=== PATIENT | female | born 1935 | race Caucasian/White ===

== ENCOUNTER → 2016-10-18 | Outpatient (CLI) | payer OTHER ==
[~2016-10-18] MED LIST: 'CLONIDINE0.1 MG PO; ALLOPURINOL300 MG PO; ALPHA LIPOIC A200 MG PO; ASPIRIN81 M1 PO; CARDIZEM CD240 MG PO; CARDURA8 MG PO; CATAPRES0.1 MG PO; CHLORTHALIDONE25 MG PO; COMBIVENT RESPIM4 GM INH; COMBIVENT1 ARO IH; COUMADIN4 M1 PO; COUMADIN4 M2 PO; DILTIAZEM HCL60 MG PO; DOXAZOSIN MESYLA8 MG; DOXAZOSIN PO; DOXYCYCLINE100 MG PO; EYE DROPS; FISH OIL 10001000 MG PO; GARLIC1 TAB PO; IODINE; K-DUR 20MEQ20 MEQ PO; LASIX40 MG PO; LISINOPRIL40 MG PO; MEDROL DOSEPAK4 MG PO; NEURONTIN300 MG PO; OMEPRAZOLE40 MG PO; PRAVACHOL20 MG PO; QUINAPRIL20 MG PO; TEKTURNA300 MG PO; VIBRAMYCIN100 MG PO; VICODIN 5/500 505 MG PO; VITAMIN B1225 MCG PO; VITAMIN B610 MG PO; XANAX0.25 MG PO
[2016-10-18 15:35] LABS: BASO % 0.7 % (0.0-1.0); EOS % 0.5 % (1.0-4.0); HEMATOCRIT 35.2 % (37.0-47.0); HEMOGLOBIN 11.3 g/dl (12.0-16.0); LYMPH # 1.5 10*3/uL (1.3-4.4); MEAN CELL VOLUME 96.2 fl (81.0-99.0); MEAN CORPUSCULAR HGB 30.9 pg (27.0-31.0); MEAN CORPUSCULAR HGB CONC 32.1 g/dl (33.0-37.0); MONO # 0.7 10*3/uL (0.1-1.0); MONO % 11.3 % (3.0-9.0); NEUT # 3.8 10*3/uL (2.3-7.9); NEUT % 62.2 % (47.0-73.0); NUCLEATED RED BLOOD CELL 0.5 % (0.0-0.0); PLATELET COUNT AUTOMATED 187 10*3/uL (130-400); RED BLOOD COUNT 3.66 10*6/uL (4.10-5.10); RED CELL DISTRI WIDTH 17.9 % (0-14.5); WHITE BLOOD COUNT 6.1 10*3/uL (4.8-10.8)
[2016-10-18 16:02] LABS: ALBUMIN 3.9 gm/dl (3.1-4.5); BILIRUBIN, DIRECT 1.2 mg/dL (0.0-0.2); BILIRUBIN, TOTAL 2.1 mg/dl (0.2-1.0); POTASSIUM 4.6 mmol/L (3.5-5.1); TOTAL PROTEIN 7.1 gm/dL (6.4-8.2)
== END | disposition home or self-care (01) ==
LOC: LAB 14:29
PROVIDERS: Family Medicine
DX: L29.9 Pruritus, unspecified (principal)

== ENCOUNTER → 2016-10-24 | Outpatient (CLI) | payer OTHER ==
[~2016-10-24] MED LIST changes: +ATARAX,VISTARIL10 MG PO; +COREG6.25 MG PO; +PREDNISONE10 MG PO; +PROPRANOLOL HCL80 M3 PO
[2016-10-24 12:15] LABS: INTERNATIONAL NORM RATIO 3.6 (2.0-3.5); PROTHROMBIN TIME 41.3 SECONDS (9.0-12.4)
== END | disposition home or self-care (01) ==
LOC: LAB 10:58
PROVIDERS: Internal Medicine Cardiovascular Disease
DX: I48.91 Unspecified atrial fibrillation (principal)

== ENCOUNTER 2016-10-26 09:44 | Emergency (ER) | payer OTHER ==
[~2016-10-26] VITALS: Ht 167.6 cm; Wt 66.2 kg
[~2016-10-26 09:44] MED LIST changes: -ATARAX,VISTARIL10 MG PO; -COREG6.25 MG PO; -PREDNISONE10 MG PO; -PROPRANOLOL HCL80 M3 PO
[2016-10-26 09:51] VITALS: BP 135/87
[2016-10-26] MEDS ORDERED: PROPRANOLOL HCL80 M3 PO (09:58)
[2016-10-26] MEDS ORDERED: ATARAX,VISTARIL10 MG PO (09:59)
[2016-10-26] MEDS ORDERED: COREG6.25 MG PO (09:59)
[2016-10-26] MEDS ORDERED: PREDNISONE10 MG PO (10:05)
== END 2016-10-26 10:50 | disposition home or self-care (01) ==
LOC: ED 09:44
DX: L29.9 Pruritus, unspecified (principal); R03.0 Elevated blood-pressure reading, without diagnosis of hypertension; Z88.0 Allergy status to penicillin; Z88.1 Allergy status to other antibiotic agents; Z88.2 Allergy status to sulfonamides; Z79.82 Long term (current) use of aspirin; Z79.899 Other long term (current) drug therapy

== ENCOUNTER → 2016-11-02 | Outpatient (CLI) | payer OTHER ==
[~2016-11-02] MED LIST changes: +ATARAX,VISTARIL10 MG PO; +COREG6.25 MG PO; +PREDNISONE10 MG PO; +PROPRANOLOL HCL80 M3 PO
[2016-11-02 16:04] LABS: POTASSIUM 4.3 mmol/L (3.5-5.1)
== END | disposition home or self-care (01) ==
LOC: LAB 15:26
PROVIDERS: Family Medicine
DX: R63.4 Abnormal weight loss (principal)

== ENCOUNTER → 2016-11-05 | Outpatient (CLI) | payer OTHER ==
[2016-11-05 11:29] LABS: BASO % 0.2 % (0.0-1.0); EOS # 0.1 10*3/uL (0.0-0.4); EOS % 1.7 % (1.0-4.0); HEMATOCRIT 36.9 % (37.0-47.0); HEMOGLOBIN 11.6 g/dl (12.0-16.0); LYMPH # 1.2 10*3/uL (1.3-4.4); LYMPH % 19.2 % (27.0-41.0); MEAN CELL VOLUME 94.4 fl (81.0-99.0); MEAN CORPUSCULAR HGB 29.7 pg (27.0-31.0); MEAN CORPUSCULAR HGB CONC 31.4 g/dl (33.0-37.0); MEAN PLATELET VOLUME 11.9 fl (9.6-12.3); MONO # 0.5 10*3/uL (0.1-1.0); MONO % 8.5 % (3.0-9.0); NEUT # 4.4 10*3/uL (2.3-7.9); NEUT % 70.1 % (47.0-73.0); NUCLEATED RED BLOOD CELL 0.6 % (0.0-0.0); PLATELET COUNT AUTOMATED 158 10*3/uL (130-400); RED BLOOD COUNT 3.91 10*6/uL (4.10-5.10); RED CELL DISTRI WIDTH 18.6 % (0-14.5); WHITE BLOOD COUNT 6.3 10*3/uL (4.8-10.8)
[2016-11-05 11:55] LABS: INTERNATIONAL NORM RATIO 3.3 (2.0-3.5); PROTHROMBIN TIME 37.7 SECONDS (9.0-12.4)
[2016-11-05 11:57] LABS: ALBUMIN 3.6 gm/dl (3.1-4.5); BILIRUBIN, TOTAL 1.6 mg/dl (0.2-1.0); MAGNESIUM 2.8 mg/dL (1.5-2.1); PHOSPHOROUS 3.5 mg/dL (2.5-4.9); POTASSIUM 5.3 mmol/L (3.5-5.1); TOTAL PROTEIN 6.6 gm/dL (6.4-8.2); URIC ACID 3.1 mg/dL (2.6-6.0)
[2016-11-05 13:03] LABS: VITAMIN D, 25-HYDROXY 37.3 ng/mL (30-100)
[2016-11-05 13:04] LABS: FERRITIN 28.6 ng/mL (10.0-291.0); PTH INTACT 179.8 pg/mL (14.0-72.0)
[2016-11-06 09:14] LABS: MICRO ALBUMIN/CRE RATIO 113.8 (0.0-30.0)
== END | disposition home or self-care (01) ==
LOC: LAB 10:50
PROVIDERS: Internal Medicine Nephrology
DX: I13.0 Hypertensive heart and chronic kidney disease with heart failure and stage 1 through stage 4 chronic kidney disease, or unspecified chronic kidney disease (principal); I50.22 Chronic systolic (congestive) heart failure; N18.3 Chronic kidney disease, stage 3 (moderate); R60.9 Edema, unspecified; I48.2 Chronic atrial fibrillation

== ENCOUNTER 2016-11-12 09:45 | Inpatient (IN) | payer OTHER ==
[2016-11-12] VITALS (8 sets, daily range): BP systolic 109–150; BP diastolic 63–103
[~2016-11-12] VITALS: Ht 170.1 cm; Wt 69.1 kg
--- NOTE | ~2016-11-12 | EKG ---
[place], [place] ELECTROCARDIOGRAM REPORT NAME: MICKIE ECHEVARRIA UNIT #: [id number] ROOM: 410 DOCTOR: MYNOR ARCHER MD BIRTHDATE: [birth year] DOS: 11/12/2016 TIME: 10:05 a.m. Atrial fibrillation with heart rate of 110 and rapid ventricular response. Indeterminant access. Low voltage in extremity leads. Poor precordial R-wave progression. Nonspecific ST and T-wave changes. Abnormal electrocardiogram. MYNOR ARCHER MD CM:EKGRPT:ELECTROCARDIOGRAM REPORT [id number] MYNOR ARCHER MD
[2016-11-12 10:10] LABS: BASO % 0.4 % (0.0-1.0); EOS # 0.1 10*3/uL (0.0-0.4); EOS % 0.7 % (1.0-4.0); HEMATOCRIT 39.8 % (37.0-47.0); HEMOGLOBIN 12.6 g/dl (12.0-16.0); LYMPH # 1.6 10*3/uL (1.3-4.4); LYMPH % 21.4 % (27.0-41.0); MEAN CELL VOLUME 94.8 fl (81.0-99.0); MEAN CORPUSCULAR HGB CONC 31.7 g/dl (33.0-37.0); MEAN PLATELET VOLUME 11.7 fl (9.6-12.3); MONO # 0.6 10*3/uL (0.1-1.0); MONO % 7.8 % (3.0-9.0); NEUT # 5.2 10*3/uL (2.3-7.9); NEUT % 69.3 % (47.0-73.0); NUCLEATED RED BLOOD CELL 0.3 % (0.0-0.0); PLATELET COUNT AUTOMATED 146 10*3/uL (130-400); RED CELL DISTRI WIDTH 20.2 % (0-14.5); WHITE BLOOD COUNT 7.4 10*3/uL (4.8-10.8)
[2016-11-12 10:25] LABS: ALBUMIN 3.7 gm/dl (3.1-4.5); BILIRUBIN, TOTAL 2.6 mg/dl (0.2-1.0); POTASSIUM 5.4 mmol/L (3.5-5.1); TOTAL PROTEIN 6.5 gm/dL (6.4-8.2)
[2016-11-12 10:29] LABS: INTERNATIONAL NORM RATIO 4.2 (2.0-3.5); PROTHROMBIN TIME 48.3 SECONDS (9.0-12.4)
[2016-11-12 10:32] LABS: CKMB 2.8 ng/ml (0.5-3.6); MAGNESIUM 2.7 mg/dL (1.5-2.1); TROPONIN I 0.03 ng/ml (<0.045)
[2016-11-12] MEDS ORDERED: KLOR-CON M2020 ME1 PO (11:31)
[2016-11-12] MEDS ORDERED: LASIX40 MG PO (11:34)
[2016-11-12] MEDS ORDERED: MAGOX 400400 MG PO (11:35)
[2016-11-12] MEDS ORDERED: ARMOUR THYROID15 M1 PO (11:36)
[2016-11-12] MEDS ORDERED: AMBIEN10 M1 PO (11:37)
[2016-11-12] MEDS ORDERED: VITAMIN B125000 MCG PO (11:39)
[2016-11-12] MEDS ORDERED: VITAMIN D31000 IU PO (11:41)
[2016-11-12 12:32] LABS: BILIRUBIN 1+ (NEGATIVE); BLOOD 1+ (NEGATIVE); CLARITY SL CLOUDY (CLEAR); COLOR YELLOW (YELLOW); GLUCOSE NEGATIVE (NEGATIVE); KETONE TRACE (NEGATIVE); LEUKO ESTERASE 2+ (NEGATIVE); NITRITE NEGATIVE (NEGATIVE); PROTEIN 2+ (NEGATIVE)
[2016-11-12 12:53] LABS: BACTERIA 3+; URINE REFLEX COMMENT YES (NO); WBC 31-40 wbc/hpf (0-5)
[2016-11-12] MEDS ORDERED: ADVAIR 100/501 E1 INH (14:56)
[2016-11-12] MEDS ORDERED: FLOVENT HFA10.6 GM IH (14:56)
[2016-11-12] MEDS ORDERED: B12100 MC1 PO (14:57)
[2016-11-12] MEDS ORDERED: ALDACTONE25 M1 PO (14:57)
[2016-11-12] MEDS ORDERED: ATORVASTATIN CA20 M1 PO (14:58)
[2016-11-12] MEDS ORDERED: VITAMIN D1000 IU PO (14:58)
[2016-11-12 18:24] LABS: CKMB 3.5 ng/ml (0.5-3.6)
[2016-11-12 18:31] LABS: TROPONIN I 0.022 ng/ml (<0.045)
[2016-11-13] VITALS: BP 148/78
[2016-11-13 00:39] LABS: CKMB 3.9 ng/ml (0.5-3.6); TROPONIN I 0.018 ng/ml (<0.045)
[2016-11-13 06:52] LABS: HEMATOCRIT 36.2 % (37.0-47.0); HEMOGLOBIN 11.2 g/dl (12.0-16.0); MEAN CELL VOLUME 95.3 fl (81.0-99.0); MEAN CORPUSCULAR HGB 29.5 pg (27.0-31.0); MEAN CORPUSCULAR HGB CONC 30.9 g/dl (33.0-37.0); MEAN PLATELET VOLUME 11.3 fl (9.6-12.3); NUCLEATED RED BLOOD CELL 1.3 % (0.0-0.0); PLATELET COUNT AUTOMATED 117 10*3/uL (130-400); RED CELL DISTRI WIDTH 20.5 % (0-14.5)
[2016-11-13 07:07] LABS: TROPONIN I 0.027 ng/ml (<0.045)
[2016-11-13 07:12] LABS: HEMOGLOBIN A1c 6.2 % (4.8-5.6)
[2016-11-13 07:26] LABS: ALBUMIN 3.3 gm/dl (3.1-4.5); MAGNESIUM 2.5 mg/dL (1.5-2.1); POTASSIUM 5.1 mmol/L (3.5-5.1)
[2016-11-13 07:35] LABS: BILIRUBIN, TOTAL 2.1 mg/dl (0.2-1.0); FREE T4 1.3 ng/dl (0.76-1.46); PHOSPHOROUS 5.4 mg/dL (2.5-4.9); THYROID STIM HORMONE (HS) 2.48 uIU/ml (0.358-4.75)
[2016-11-13 07:51] LABS: PROTHROMBIN TIME 55.4 SECONDS (9.0-12.4)
[2016-11-13 07:55] LABS: INTERNATIONAL NORM RATIO 4.7 (2.0-3.5)
[2016-11-13 07:57] LABS: ACANTHOCYTES FEW; BURR CELLS FEW; HYPOCHROMIA SLIGHT; LYMPHOCYTE # 0.3 10*3/uL (1.3-4.4); MONOCYTE # 0.1 10*3/uL (0.1-1.0); NEUTROPHIL # 2.6 10*3/uL (2.3-7.9); NEUTROPHILS 87 % (47-73); PLATELET SUFFICIENCY LOW (NORMAL); POLYCHROMASIA SLIGHT; SCHISTOCYTES FEW; TOTAL CELLS COUNTED 100 #CELLS
[2016-11-13 08:00] VITALS: BP 137/85
[2016-11-13 08:17] LABS: VITAMIN D, 25-HYDROXY 43.9 ng/mL (30-100)
[2016-11-13 08:18] LABS: FOLIC ACID 12.69 ng/mL (>5.38)
[2016-11-13 12:00] VITALS: BP 138/78
[2016-11-13 16:00] VITALS: BP 115/66
[2016-11-13 20:00] VITALS: BP 138/73
[2016-11-14] VITALS: BP 110/76
[2016-11-14 07:42] LABS: HEMATOCRIT 34.7 % (37.0-47.0); MEAN CELL VOLUME 95.9 fl (81.0-99.0); MEAN CORPUSCULAR HGB 30.4 pg (27.0-31.0); MEAN CORPUSCULAR HGB CONC 31.7 g/dl (33.0-37.0); MEAN PLATELET VOLUME 11.8 fl (9.6-12.3); NUCLEATED RED BLOOD CELL 0.3 % (0.0-0.0); PLATELET COUNT AUTOMATED 123 10*3/uL (130-400); RED BLOOD COUNT 3.62 10*6/uL (4.10-5.10); RED CELL DISTRI WIDTH 20.5 % (0-14.5); WHITE BLOOD COUNT 8.7 10*3/uL (4.8-10.8)
[2016-11-14 07:52] LABS: POTASSIUM 4.3 mmol/L (3.5-5.1)
[2016-11-14 07:59] LABS: PROTHROMBIN TIME 79.4 SECONDS (9.0-12.4)
[2016-11-14 08:00] VITALS: BP 119/68
[2016-11-14 08:02] LABS: INTERNATIONAL NORM RATIO 6.6 (2.0-3.5)
[2016-11-14 08:10] LABS: ACANTHOCYTES FEW; BURR CELLS MODERATE; LYMPHOCYTE # 0.3 10*3/uL (1.3-4.4); MONOCYTE # 0.1 10*3/uL (0.1-1.0); NEUTROPHIL # 8.3 10*3/uL (2.3-7.9); NEUTROPHILS 95 % (47-73); PLATELET SUFFICIENCY LOW (NORMAL); POLYCHROMASIA SLIGHT; TOTAL CELLS COUNTED 100 #CELLS
[2016-11-14 12:00] VITALS: BP 128/59
[2016-11-14 16:00] VITALS: BP 140/75
[2016-11-14 20:00] VITALS: BP 146/74
[2016-11-15] VITALS: BP 150/86
[2016-11-15 02:12] LABS: BILIRUBIN NEGATIVE (NEGATIVE); BLOOD NEGATIVE (NEGATIVE); CLARITY CLEAR (CLEAR); COLOR YELLOW (YELLOW); GLUCOSE NEGATIVE (NEGATIVE); KETONE NEGATIVE (NEGATIVE); LEUKO ESTERASE NEGATIVE (NEGATIVE); NITRITE NEGATIVE (NEGATIVE); PROTEIN NEGATIVE (NEGATIVE); SPECIFIC GRAVITY <= 1.005 (1.005-1.030); UROBILINOGEN 0.2 E.U./dl (0.2-1.0)
[2016-11-15 02:19] LABS: RBC 0-2 rbc/hpf (0-2); URINE REFLEX COMMENT NO (NO)
[2016-11-15 03:59] VITALS: BP 145/81
[2016-11-15 06:13] LABS: HEMATOCRIT 35.2 % (37.0-47.0); HEMOGLOBIN 11.2 g/dl (12.0-16.0); IG # 0.1 10*3/uL (0.0-0.1); LYMPH # 0.7 10*3/uL (1.3-4.4); LYMPH % 8.6 % (27.0-41.0); MEAN CELL VOLUME 94.6 fl (81.0-99.0); MEAN CORPUSCULAR HGB 30.1 pg (27.0-31.0); MEAN CORPUSCULAR HGB CONC 31.8 g/dl (33.0-37.0); MEAN PLATELET VOLUME 11.9 fl (9.6-12.3); MONO # 0.4 10*3/uL (0.1-1.0); MONO % 4.4 % (3.0-9.0); NEUT # 7.4 10*3/uL (2.3-7.9); NEUT % 86.4 % (47.0-73.0); NUCLEATED RED BLOOD CELL 0.4 % (0.0-0.0); PLATELET COUNT AUTOMATED 136 10*3/uL (130-400); RED BLOOD COUNT 3.72 10*6/uL (4.10-5.10); RED CELL DISTRI WIDTH 20.3 % (0-14.5); WHITE BLOOD COUNT 8.6 10*3/uL (4.8-10.8)
[2016-11-15 06:20] LABS: INTERNATIONAL NORM RATIO 4.1 (2.0-3.5); PROTHROMBIN TIME 47.4 SECONDS (9.0-12.4)
[2016-11-15 06:23] LABS: ALBUMIN 3.5 gm/dl (3.1-4.5); POTASSIUM 4.1 mmol/L (3.5-5.1)
[2016-11-15 06:24] LABS: BILIRUBIN, TOTAL 1.5 mg/dl (0.2-1.0); TOTAL PROTEIN 6.1 gm/dL (6.4-8.2)
[2016-11-15 08:00] VITALS: BP 153/90
[2016-11-15 09:32] VITALS: BP 150/56
[2016-11-15 12:00] VITALS: BP 152/85
[2016-11-15] MEDS ORDERED: XANAX0.25 MG PO (12:57)
[2016-11-15] MEDS ORDERED: ROPINIROLE HY0.25 MG PO (12:57)
== END 2016-11-15 15:52 | disposition other institution (70) | DRG 917 ==
LOC: ED 09:45 → EDHOLD 11:34 → 4E 11:34
PROVIDERS: Internal Medicine; Registered Nurse
DX: T42.6X1A Poisoning by other antiepileptic and sedative-hypnotic drugs, accidental (unintentional), initial encounter (principal); I50.23 Acute on chronic systolic (congestive) heart failure; N17.0 Acute kidney failure with tubular necrosis; G93.41 Metabolic encephalopathy; I48.1 Persistent atrial fibrillation; J44.1 Chronic obstructive pulmonary disease with (acute) exacerbation; I13.2 Hypertensive heart and chronic kidney disease with heart failure and with stage 5 chronic kidney disease, or end stage renal disease; E53.8 Deficiency of other specified B group vitamins; E55.9 Vitamin D deficiency, unspecified; E78.00 Pure hypercholesterolemia, unspecified; G47.09 Other insomnia; N18.3 Chronic kidney disease, stage 3 (moderate); E87.5 Hyperkalemia; F41.9 Anxiety disorder, unspecified; T45.515A Adverse effect of anticoagulants, initial encounter; K21.9 Gastro-esophageal reflux disease without esophagitis; E03.9 Hypothyroidism, unspecified; I73.9 Peripheral vascular disease, unspecified; G25.81 Restless legs syndrome; Y92.89 Other specified places as the place of occurrence of the external cause; Z88.0 Allergy status to penicillin; Z88.1 Allergy status to other antibiotic agents; Z86.73 Personal history of transient ischemic attack (TIA), and cerebral infarction without residual deficits; Z88.2 Allergy status to sulfonamides; Z98.51 Tubal ligation status; Z90.710 Acquired absence of both cervix and uterus; Z95.820 Peripheral vascular angioplasty status with implants and grafts; Z80.8 Family history of malignant neoplasm of other organs or systems; Z82.49 Family history of ischemic heart disease and other diseases of the circulatory system

== ENCOUNTER → 2016-12-04 | Outpatient (CLI) | payer OTHER ==
[~2016-12-04] MED LIST changes: +ADVAIR 100/501 E1 INH; +ALDACTONE25 M1 PO; +AMBIEN10 M1 PO; +ARMOUR THYROID15 M1 PO; +ATORVASTATIN CA20 M1 PO; +B12100 MC1 PO; +FLOVENT HFA10.6 GM IH; +KLOR-CON M2020 ME1 PO; +MAGOX 400400 MG PO; +ROPINIROLE HY0.25 MG PO; +VITAMIN B125000 MCG PO; +VITAMIN D1000 IU PO; +VITAMIN D31000 IU PO
[2016-12-04 13:28] LABS: POTASSIUM 4.6 mmol/L (3.5-5.1)
== END | disposition home or self-care (01) ==
LOC: LAB 12:39
PROVIDERS: Family Medicine
DX: N28.9 Disorder of kidney and ureter, unspecified (principal)

== ENCOUNTER 2016-12-07 10:16 | Inpatient (IN) | payer OTHER ==
[~2016-12-07] VITALS: Ht 160 cm; Wt 69.2 kg
[2016-12-07] VITALS (10 sets, daily range): BP systolic 115–159; BP diastolic 65–105
--- NOTE | ~2016-12-07 | PR ---
[place], [place] PROGRESS NOTE NAME: MICKIE ECHEVARRIA UNIT #: [id number] ROOM: 511 DOCTOR: LSIA HANSON MD BIRTHDATE: [birth year] DOS: 12/10/2016 SUBJECTIVE: She is awake. She is comfortable. She is rather slow and sluggish. She has no chest pain or palpitations. Does not complain of any other symptoms. She is diuresed well, 6.5 liters negative fluid balance in the last 3 days. OBJECTIVE: VITAL SIGNS: Pulse is irregular at 90 beats per minute. Blood pressure 114/58, jugular venous pressure remains high being greater than 20 cm of water. CARDIOVASCULAR: Auscultation reveals no obvious murmurs. She has no edema at all in the lower extremities. LUNGS: Breath sounds are mildly diminished with the crackles and some rhonchi in the lower zones. LABORATORY DATA: Creatinine has come down since admission despite aggressive diuresis. This patient still has some degree of heart failure. Chest x-ray done yesterday demonstrated moderate degree of pulmonary edema and mild cardiomegaly. IMPRESSION: This patient has had [id number] systolic heart failure, which has improved significantly. I think IV furosemide should be used for another 2 or 3 days while monitoring renal function, which has improved since admission. LISA HANSON MD CM:PNTRANS [id number] LISA HANSON MD 12/11/16 0703 interface
--- NOTE | ~2016-12-07 | PR ---
[place], [place] PROGRESS NOTE NAME: MICKIE ECHEVARRIA UNIT #: [id number] ROOM: 511 DOCTOR: GUCCI DE LEON MD BIRTHDATE: [birth year] DOS: SUBJECTIVE: A 24-hour events noted. Discussed with the nursing staff. The patient is comfortable, sleeping. The patient is seen by Dr. Mathur yesterday. The patient is in sinus rhythm. OBJECTIVE: VITAL SIGNS: Blood pressure is 125/66, heart rate is 84. I's and O's is negative 692. NECK: Supple. Elevated JVD. REVIEW OF SYSTEMS: The patient is slightly sluggish. A 68 review of systems were reviewed. HEART: Both heart sounds are regular. ABDOMEN: Soft, nontender. NEUROLOGIC: Appears to be somewhat sluggish, but moving all the extremities, appropriately answering. The patient is lethargic, arousable. She just woke up from sleep. LABORATORY DATA: Hemoglobin 9.7, hematocrit 31.3. Creatinine is 1.2, which is significantly improved. IMPRESSION: The ejection fraction is 30-35% by echo. Acute on chronic systolic congestive heart failure. RECOMMENDATIONS: Continue the IV diuretics. Strict I's and O's. Continue the antibiotics. The patient is already on beta blockers, lipid lowering agents. Once the renal function improves, a small dose of JOVANNY inhibitors should be instituted and we will follow up. GUCCI DE LEON MD CM:PNTRANS 6 30 GUCCI DE LEON MD 12/11/162129 interface
--- NOTE | ~2016-12-07 | O ---
[place], [place] OPERATIVE NOTE NAME: BETOIWONA RobertsonMonico Hernandez UNIT #: [id number] ROOM: 511 DOCTOR: JOMAR ALMARAZ MD BIRTHDATE: [birth year] DOS: 12/12/2016 GASTROENDOSCOPIC REPORT INDICATIONS: A 81-year-old patient has presented with abdominal pain, epigastric distress, undergoing investigation. Consultation has been dictated. PROCEDURE: Today's procedure part of investigation is panendoscopy. PREMEDICATION: Versed and Diprivan. SCOPE: Olympus forward-viewing gastroscope Q10 video. REPORT: After putting the patient in the left lateral position and after application of lubricant to the scope, the scope was introduced; thereafter, under direct visualization, under direct visualization, advanced through the length of esophagus without difficulty. Gastric pouch was entered. Small hiatal hernia about 1 cm was noticed. Gastric pouch was entered. Gastritis seen. This was mild degree, antral biopsy was obtained for H. pylori. Duodenal bulb, second and third part within normal limits. The patient extubated, tolerated the procedure well. IMPRESSION: Small hiatal hernia, mild gastritis, status post biopsy, ruling out H. pylori. PLAN : Omeprazole 20 mg 1 q. day would do. I am not convinced if this above finding would explain abdominal distress, borderline anemia. Therefore, we are going to organize a colonoscopy on Saturday. Thank you very much indeed, workup in progress. [place], [place] OPERATIVE NOTE NAME: BETOAilynMICKIE A UNIT #: [id number] ROOM: 511 DOCTOR: JOMAR ALMARAZ MD BIRTHDATE: [birth year] JOMAR ALMARAZ MD CM:OPRECORD:OPERATIVE NOTE [id number] JOMAR ALMARAZ MD 12/12/16 1737 interface
--- NOTE | ~2016-12-07 | EKG ---
[place], [place] ELECTROCARDIOGRAM REPORT NAME: MICKIE ECHEVARRIA UNIT #: [id number] ROOM: [facility] DOCTOR: MARGIE ZEPEDA,LISA BIRTHDATE: [birth year] DOS: 12/07/2016 TIME: 1145 hours. Atrial fibrillation with ventricular rate of 96 beats per minute. Poor R-wave progression in chest leads raises the possibility of an old anterior wall myocardial infarction. An abnormal ECG. No previous tracing is available for comparison. LISA HANSON MD CM:EKGRPT:ELECTROCARDIOGRAM REPORT [id number] [id number] LISA HANSON MD
--- NOTE | ~2016-12-07 | CON ---
[place], [place] REPORT OF CONSULTATION NAME: [facility]RI[id number] UNIT #: [id number] ROOM: 511 DOCTOR: JOMAR ALMARAZ MD BIRTHDATE: [birth year] DOS: 12/12/2016 HISTORY OF PRESENT ILLNESS: The patient has presented with multiple medical problems, among which has been borderline anemia with drop in H and H and the patient has been on Coumadin. I have been asked for assessment of the patient in this regard. The patient has been complaining of general lack of well being. She had a panel of blood work with lactic acid was 1.8, which is normal. INR 3.2. Basic metabolic panel, BUN and creatinine are slightly elevated at 43 and 1.4, GFR of 42. Chest x-ray showed pulmonary edema. 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 CT scan of the abdomen and pelvis was done based on the complaints of not feeling well in her abdomen, no evidence of acute process seen, suggestion of cirrhosis in the liver with a small amount of perihepatic fluid was identified. Sonogram of the gallbladder was without cholelithiasis and hepatic cirrhosis was identified. Serum ammonia level was 51. PAST MEDICAL HISTORY: Associated with chronic obstructive pulmonary disease, renal insufficiency, hyperlipidemia, electrolyte imbalance, hyperammonemia, cirrhosis, atrial fibrillation, anticoagulation therapy with Coumadin. PAST SURGICAL HISTORY: Carotid endarterectomy, fem-pop. Bilateral carotid inferior vena cava arterial femoral bypass. SOCIAL HISTORY: Nonsmoker, nonalcohol consumer. ALLERGIES: TO SULFA, PENICILLIN, CIPROFLOXACIN. MEDICATIONS: List has been reviewed. REVIEW OF SYSTEMS: In general, HEENT: Denies double vision, blurred vision. RESPIRATORY: Denies shortness of breath. CARDIOVASCULAR: Denies acute chest pain. DIGESTIVE SYSTEM: No hematemesis, no hematochezia. PHYSICAL EXAMINATION: VITAL SIGNS: Stable. HEENT: Head normocephalic, nontraumatic. Mouth and buccal mucosa benign. NECK: Supple, no thyromegaly. CHEST: Symmetric anatomy, equal expansion. Decreased air entry bilaterally. HEART: Atrial fibrillation, moderate ventricular response. ABDOMEN: Soft. No hepato-organomegaly. Bowel sounds present. EXTREMITIES: 2+ pedal edema with stasis dermatitis bilaterally. NEUROLOGIC: Alert and oriented, not encephalopathic, no evidence of asterixis. IMPRESSION: Cirrhosis, ruling out portal hypertension, esophageal varicosity, borderline anemia. All have been recognized. Platelet count has been normal. Abdominal [place], [place] REPORT OF CONSULTATION NAME: MICKIE ECHEVARRIA UNIT #: [id number] ROOM: 511 DOCTOR: JOMAR ALMARAZ MD BIRTHDATE: [birth year] pain has been investigated with EGD and hoping to rule out esophageal varicosity and therefore portal hypertension. JOMAR ALMARAZ MD CM:CONSTR:REPORT OF CONSULTATION 1202 12/13/16 0345 interface
--- NOTE | ~2016-12-07 | CON ---
[place], [place] REPORT OF CONSULTATION NAME: [facility]RIA [id number] UNIT #: [id number] ROOM: 511 DOCTOR: LISA HANSON MD BIRTHDATE: [birth year] DOS: 12/07/2016 HISTORY OF PRESENT ILLNESS: The patient is a 81-year-old -[place] woman with a history of coronary artery disease. She had severe coronary artery disease and severe aortic stenosis; she had an EF of about 30%. A lrkh-ocb-z-half to 2 years ago, she underwent aortic valve replacement with a bioprosthetic valve and coronary artery bypass graft study was also done; this was performed in [place]. LV ejection fraction did improve somewhat following that. She also has chronic atrial fibrillation, COPD, hypercholesterolemia, essential hypertension, hypothyroidism, peripheral vascular disease, restless legs syndrome, TIA and carotid stenosis. She was admitted to the hospital because of acute exacerbation of shortness of breath. She noticed a few days prior to this admission she had difficulty sleeping at night and also when she walked, she became very short of breath. She had no chest pain and no obvious palpitations. She had quite a bit of swelling in the legs as well. HOME MEDICATIONS: Include Flovent HFA and Ativan, allopurinol 300 daily, alprazolam 0.25 mg q. 8 h., aspirin 81 daily, atorvastatin 20 mg daily, carvedilol 6.25 mg b.i.d., vitamin D, gabapentin, omeprazole, potassium chloride, torsemide 100 mg daily, warfarin 2.5 mg daily, Ambien 10 mg at night, spironolactone 25 mg daily, ropinirole 0.25 mg at night, potassium chloride 20 mEq t.i.d. PHYSICAL EXAMINATION: GENERAL: Revealed a patient who was tachypneic. She seems tired and exhausted. No cyanosis was present. She was on O2 via nasal cannula. VITAL SIGNS: Pulse was irregular at 120 beats per minute, blood pressure was on the low side. NECK: JVP was greater than 20 cm of water with bobbing ear lobes. No carotid bruit could be appreciated. HEART: She had no obvious murmurs. ABDOMEN: Bowel sounds was present. EXTREMITIES: There was moderate degree of edema in the lower extremities. LUNGS: Auscultation of the lungs revealed a lot of crackles with moderately diminished breath sounds bilaterally. DIAGNOSTIC STUDIES: Chest x-ray demonstrated moderate pulmonary edema. IMPRESSION AND PLAN: 1. This patient with ischemic cardiomyopathy has chronic heart failure with acute exacerbation. She has a oopyfwjb-xn-jooohj heart failure now, atrial fibrillation with rapid rate is probably contributing to this, so the rate needs to be slowed down and I would recommend aggressive IV diuresis. She was on 100 mg of torsemide at home which is a high dose of a diuretic. If she does not get better, then dobutamine and dopamine drip should also be considered. 2. Chronic kidney disease. Because she has severely elevated right-sided pressures and pulmonary hypertension, unloading fluid may improve her heart function. [place], [place] REPORT OF CONSULTATION NAME: MICKIE ECHEVARRIA UNIT #: [id number] ROOM: [facility] DOCTOR: LISA HANSON MD BIRTHDATE: [birth year] LISA HANSON MD CM:CONSTR:REPORT OF CONSULTATION 1740 12/11/16 0804 interface
[2016-12-07] MEDS ORDERED: COUMADIN2 MG PO (10:24)
[2016-12-07 11:15] LABS: BILIRUBIN NEGATIVE (NEGATIVE); BLOOD TRACE-INTACT (NEGATIVE); CLARITY CLEAR (CLEAR); COLOR YELLOW (YELLOW); GLUCOSE NEGATIVE (NEGATIVE); KETONE NEGATIVE (NEGATIVE); LEUKO ESTERASE 1+ (NEGATIVE); NITRITE NEGATIVE (NEGATIVE); PROTEIN NEGATIVE (NEGATIVE); SPECIFIC GRAVITY <= 1.005 (1.005-1.030)
[2016-12-07 11:25] LABS: BACTERIA 1+; MUCOUS 1+; WBC 16-20 wbc/hpf (0-5)
[2016-12-07 11:26] LABS: URINE REFLEX COMMENT YES (NO)
[2016-12-07 11:33] LABS: BASO % 0.4 % (0.0-1.0); EOS # 0.1 10*3/uL (0.0-0.4); EOS % 1.2 % (1.0-4.0); HEMATOCRIT 36.1 % (37.0-47.0); HEMOGLOBIN 11.1 g/dl (12.0-16.0); LYMPH # 1.5 10*3/uL (1.3-4.4); LYMPH % 30.4 % (27.0-41.0); MEAN CELL VOLUME 96.3 fl (81.0-99.0); MEAN CORPUSCULAR HGB 29.6 pg (27.0-31.0); MEAN CORPUSCULAR HGB CONC 30.7 g/dl (33.0-37.0); MEAN PLATELET VOLUME 10.2 fl (9.6-12.3); MONO # 0.6 10*3/uL (0.1-1.0); MONO % 11.3 % (3.0-9.0); NEUT # 2.8 10*3/uL (2.3-7.9); NEUT % 56.5 % (47.0-73.0); NUCLEATED RED BLOOD CELL 0.4 % (0.0-0.0); PLATELET COUNT AUTOMATED 173 10*3/uL (130-400); RED BLOOD COUNT 3.75 10*6/uL (4.10-5.10); RED CELL DISTRI WIDTH 20.7 % (0-14.5)
[2016-12-07 11:45] LABS: INTERNATIONAL NORM RATIO 3.2 (2.0-3.5); PROTHROMBIN TIME 36.2 SECONDS (9.0-12.4)
[2016-12-07 11:53] LABS: ALBUMIN 3.2 gm/dl (3.1-4.5); ALKALINE PHOSPHATASE 126 U/L (45-117); BILIRUBIN, DIRECT 1.1 mg/dL (0.0-0.2); BILIRUBIN, TOTAL 1.7 mg/dl (0.2-1.0); BUN 43 mg/dl (7-24); CARBON DIOXIDE 27 mmol/L (21-32); CHLORIDE 101 mmol/L (98-107); EST GLOM FILT AFRICAN AMERICAN 42 ml/min; GLUCOSE 97 mg/dL (65-99); MAGNESIUM 2.7 mg/dL (1.5-2.1); POTASSIUM 5.1 mmol/L (3.5-5.1); SGOT/AST 27 IU/L (3-35); SGPT/ALT 26 U/L (12-78); SODIUM 135 mmol/L (136-145); TOTAL PROTEIN 6.4 gm/dL (6.4-8.2)
[2016-12-07 11:54] LABS: TROPONIN I < 0.015 ng/ml (<0.045)
[2016-12-07] MEDS ORDERED: AMBIEN10 M1 PO (15:15)
[2016-12-07] MEDS ORDERED: ALDACTONE25 M1 PO (15:15)
[2016-12-07 18:53] LABS: CKMB 2.3 ng/ml (0.5-3.6); CPK 37 U/L (26-192)
[2016-12-07 18:54] LABS: TROPONIN I < 0.015 ng/ml (<0.045)
[2016-12-08] VITALS (7 sets, daily range): BP systolic 146–161; BP diastolic 72–87
[2016-12-08 00:19] LABS: CKMB 1.9 ng/ml (0.5-3.6); CPK 33 U/L (26-192); TROPONIN I < 0.015 ng/ml (<0.045)
[2016-12-08 06:28] LABS: BASO % 0.6 % (0.0-1.0); EOS % 0.6 % (1.0-4.0); HEMATOCRIT 34.1 % (37.0-47.0); HEMOGLOBIN 10.8 g/dl (12.0-16.0); LYMPH # 1.1 10*3/uL (1.3-4.4); LYMPH % 21.1 % (27.0-41.0); MEAN CELL VOLUME 96.1 fl (81.0-99.0); MEAN CORPUSCULAR HGB 30.4 pg (27.0-31.0); MEAN CORPUSCULAR HGB CONC 31.7 g/dl (33.0-37.0); MEAN PLATELET VOLUME 10.8 fl (9.6-12.3); MONO # 0.6 10*3/uL (0.1-1.0); MONO % 11.7 % (3.0-9.0); NEUT # 3.5 10*3/uL (2.3-7.9); NEUT % 65.6 % (47.0-73.0); PLATELET COUNT AUTOMATED 180 10*3/uL (130-400); RED BLOOD COUNT 3.55 10*6/uL (4.10-5.10); RED CELL DISTRI WIDTH 20.5 % (0-14.5); WHITE BLOOD COUNT 5.3 10*3/uL (4.8-10.8)
[2016-12-08 06:47] LABS: CKMB 1.5 ng/ml (0.5-3.6); CPK 25 U/L (26-192)
[2016-12-08 06:48] LABS: ALBUMIN 3.1 gm/dl (3.1-4.5); BILIRUBIN, TOTAL 1.6 mg/dl (0.2-1.0); FREE T4 1.62 ng/dl (0.76-1.46); MAGNESIUM 2.2 mg/dL (1.5-2.1); PHOSPHOROUS 4.6 mg/dL (2.5-4.9); POTASSIUM 4.8 mmol/L (3.5-5.1); TOTAL PROTEIN 5.9 gm/dL (6.4-8.2)
[2016-12-08 06:51] LABS: TROPONIN I < 0.015 ng/ml (<0.045)
[2016-12-08 06:52] LABS: THYROID STIM HORMONE (HS) 3.52 uIU/ml (0.358-4.75)
[2016-12-08 07:03] LABS: INTERNATIONAL NORM RATIO 2.7 (2.0-3.5); PROTHROMBIN TIME 30.6 SECONDS (9.0-12.4)
[2016-12-08 07:21] LABS: FOLIC ACID 17.24 ng/mL (>5.38); VITAMIN D, 25-HYDROXY 31.3 ng/mL (30-100)
[2016-12-08 08:20] LABS: ABG BASE EXCESS 2.5 mmol/L (-2.0-2.0); ABG CO2 CONTENT 28.9 mmol/L (23-27); ABG HCO3 27.5 mmol/l (22-26); ABG TEMPERATURE 97.1 F (98.0-99.0); ARTERIAL BLOOD GAS PH 7.398 (7.35-7.45); ARTERIAL BLOOD GAS PO2 96.9 mmHg (80-90)
[2016-12-09] VITALS: BP 120/62
[2016-12-09 04:00] VITALS: BP 127/73
[2016-12-09 05:54] LABS: BASO % 0.4 % (0.0-1.0); EOS % 0.9 % (1.0-4.0); HEMATOCRIT 32.8 % (37.0-47.0); HEMOGLOBIN 10.2 g/dl (12.0-16.0); LYMPH # 1.1 10*3/uL (1.3-4.4); LYMPH % 23.6 % (27.0-41.0); MEAN CELL VOLUME 96.5 fl (81.0-99.0); MEAN CORPUSCULAR HGB CONC 31.1 g/dl (33.0-37.0); MONO # 0.7 10*3/uL (0.1-1.0); MONO % 14.3 % (3.0-9.0); NEUT # 2.7 10*3/uL (2.3-7.9); NEUT % 60.4 % (47.0-73.0); PLATELET COUNT AUTOMATED 149 10*3/uL (130-400); RED CELL DISTRI WIDTH 20.5 % (0-14.5); WHITE BLOOD COUNT 4.5 10*3/uL (4.8-10.8)
[2016-12-09 06:04] LABS: ALBUMIN 2.9 gm/dl (3.1-4.5); BILIRUBIN, TOTAL 1.5 mg/dl (0.2-1.0); TOTAL PROTEIN 5.6 gm/dL (6.4-8.2)
[2016-12-09 12:00] VITALS: BP 138/71
[2016-12-09 16:00] VITALS: BP 146/60
[2016-12-09 20:00] VITALS: BP 130/65
[2016-12-10] VITALS: BP 128/65
[2016-12-10 04:00] VITALS: BP 136/67
[2016-12-10 06:01] LABS: POTASSIUM 3.8 mmol/L (3.5-5.1)
[2016-12-10 06:05] LABS: BASO % 0.2 % (0.0-1.0); EOS # 0.1 10*3/uL (0.0-0.4); EOS % 1.5 % (1.0-4.0); HEMATOCRIT 31.9 % (37.0-47.0); HEMOGLOBIN 9.7 g/dl (12.0-16.0); LYMPH % 20.7 % (27.0-41.0); MEAN CELL VOLUME 95.8 fl (81.0-99.0); MEAN CORPUSCULAR HGB 29.1 pg (27.0-31.0); MEAN CORPUSCULAR HGB CONC 30.4 g/dl (33.0-37.0); MEAN PLATELET VOLUME 10.7 fl (9.6-12.3); MONO # 0.7 10*3/uL (0.1-1.0); MONO % 14.5 % (3.0-9.0); NEUT # 2.9 10*3/uL (2.3-7.9); NEUT % 62.7 % (47.0-73.0); PLATELET COUNT AUTOMATED 149 10*3/uL (130-400); RED BLOOD COUNT 3.33 10*6/uL (4.10-5.10); RED CELL DISTRI WIDTH 20.3 % (0-14.5); WHITE BLOOD COUNT 4.7 10*3/uL (4.8-10.8)
[2016-12-10 08:00] VITALS: BP 142/71
[2016-12-10 12:00] VITALS: BP 136/70
[2016-12-10 16:00] VITALS: BP 114/58
[2016-12-10 20:00] VITALS: BP 123/67
[2016-12-11] VITALS: BP 125/66
[2016-12-11 06:40] LABS: POTASSIUM 4.3 mmol/L (3.5-5.1)
[2016-12-11 08:00] VITALS: BP 128/68
[2016-12-11] MEDS ORDERED: FUROSEMIDE40 MG PO (09:42)
[2016-12-11 11:04] VITALS: BP 122/83
[2016-12-11 12:00] VITALS: BP 116/52
[2016-12-11 16:00] VITALS: BP 113/76
[2016-12-11 20:00] VITALS: BP 130/68
[2016-12-12] VITALS (8 sets, daily range): BP systolic 101–140; BP diastolic 49–77
[2016-12-12 06:36] LABS: BASO % 0.6 % (0.0-1.0); EOS # 0.1 10*3/uL (0.0-0.4); EOS % 1.2 % (1.0-4.0); HEMATOCRIT 33.4 % (37.0-47.0); HEMOGLOBIN 10.5 g/dl (12.0-16.0); LYMPH # 1.4 10*3/uL (1.3-4.4); MEAN CELL VOLUME 94.4 fl (81.0-99.0); MEAN CORPUSCULAR HGB 29.7 pg (27.0-31.0); MEAN CORPUSCULAR HGB CONC 31.4 g/dl (33.0-37.0); MEAN PLATELET VOLUME 9.9 fl (9.6-12.3); MONO # 0.6 10*3/uL (0.1-1.0); MONO % 11.9 % (3.0-9.0); NEUT # 2.8 10*3/uL (2.3-7.9); NEUT % 57.3 % (47.0-73.0); PLATELET COUNT AUTOMATED 158 10*3/uL (130-400); RED BLOOD COUNT 3.54 10*6/uL (4.10-5.10); WHITE BLOOD COUNT 4.9 10*3/uL (4.8-10.8)
[2016-12-12 06:49] LABS: POTASSIUM 4.6 mmol/L (3.5-5.1)
[2016-12-12 07:14] LABS: INTERNATIONAL NORM RATIO 2.1 (2.0-3.5); PROTHROMBIN TIME 23.1 SECONDS (9.0-12.4)
== END 2016-12-12 17:39 | disposition other institution (70) | DRG 871 ==
LOC: ED 10:16 → ICCU 14:14 → EDHOLD 14:14 → 5E 14:14 → 4E 14:45 → ICCU 17:31 → 5E 12-10 15:53
PROVIDERS: Emergency Medicine; Internal Medicine
PROC: 0DB68ZX Excision of Stomach, Via Natural or Artificial Opening Endoscopic, Diagnostic (ICD-10-PCS; principal; 2016-12-12)
DX: A41.9 Sepsis, unspecified organism (principal); G93.41 Metabolic encephalopathy; I50.23 Acute on chronic systolic (congestive) heart failure; K29.71 Gastritis, unspecified, with bleeding; J18.9 Pneumonia, unspecified organism; E72.20 Disorder of urea cycle metabolism, unspecified; I13.0 Hypertensive heart and chronic kidney disease with heart failure and stage 1 through stage 4 chronic kidney disease, or unspecified chronic kidney disease; K74.60 Unspecified cirrhosis of liver; I85.00 Esophageal varices without bleeding; I27.2 Other secondary pulmonary hypertension; N39.0 Urinary tract infection, site not specified; J44.0 Chronic obstructive pulmonary disease with (acute) lower respiratory infection; R65.20 Severe sepsis without septic shock; D64.9 Anemia, unspecified; I48.2 Chronic atrial fibrillation; N18.3 Chronic kidney disease, stage 3 (moderate); F41.9 Anxiety disorder, unspecified; E53.8 Deficiency of other specified B group vitamins; E55.9 Vitamin D deficiency, unspecified; G25.81 Restless legs syndrome; K21.9 Gastro-esophageal reflux disease without esophagitis; G47.00 Insomnia, unspecified; E03.9 Hypothyroidism, unspecified; K44.9 Diaphragmatic hernia without obstruction or gangrene; I25.5 Ischemic cardiomyopathy; E78.00 Pure hypercholesterolemia, unspecified; W18.30XA Fall on same level, unspecified, initial encounter; I73.9 Peripheral vascular disease, unspecified; Z79.01 Long term (current) use of anticoagulants; Y93.89 Activity, other specified; Y92.098 Other place in other non-institutional residence as the place of occurrence of the external cause; Y99.8 Other external cause status; Z88.0 Allergy status to penicillin; Z88.2 Allergy status to sulfonamides; Z88.1 Allergy status to other antibiotic agents; Z86.73 Personal history of transient ischemic attack (TIA), and cerebral infarction without residual deficits; Z79.82 Long term (current) use of aspirin; Z79.899 Other long term (current) drug therapy; K72.90 Hepatic failure, unspecified without coma

== ENCOUNTER 2016-12-14 03:05 | Emergency (ER) | payer OTHER ==
[~2016-12-14] VITALS: Ht 162.5 cm; Wt 68.0 kg
[~2016-12-14 03:05] MED LIST changes: +COUMADIN2 MG PO; +FUROSEMIDE40 MG PO
[2016-12-14 03:18] VITALS: BP 137/74
[2016-12-14] MEDS ORDERED: WARFARIN SOD5 MG PO (03:24)
[2016-12-14] MEDS ORDERED: OMEPRAZOLE20 M2 PO (03:25)
[2016-12-14] MEDS ORDERED: MASON NATURAL1000 IU PO (03:25)
[2016-12-14] MEDS ORDERED: ZOLPIDEM10 MG PO (03:25)
[2016-12-14] MEDS ORDERED: ROPINIROLE HY0.25 MG PO (03:26)
[2016-12-14] MEDS ORDERED: ATORVASTATIN CA20 M1 PO (03:26)
[2016-12-14] MEDS ORDERED: ALDACTONE25 MG PO (03:26)
[2016-12-14] MEDS ORDERED: POTASSIUM CHLO20 ME4 PO (03:27)
[2016-12-14] MEDS ORDERED: CARVEDILOL6.25 MG PO (03:27)
[2016-12-14] MEDS ORDERED: ASPIR LOW81 MG PO (03:28)
[2016-12-14] MEDS ORDERED: ARMOUR THYROID30 M1 PO (03:28)
[2016-12-14] MEDS ORDERED: ADVAIR DISKUS 11 DSK INH (03:28)
[2016-12-14] MEDS ORDERED: FLOVENT DI50 MCG/Act IH (03:29)
[2016-12-14] MEDS ORDERED: LASIX40 MG PO (03:29)
[2016-12-14] MEDS ORDERED: ZYLOPRIM300 MG PO (03:29)
[2016-12-14] MEDS ORDERED: NEURONTIN300 MG PO (03:29)
[2016-12-14] MEDS ORDERED: ALPRAZOLAM0.25 M2 PO (03:30)
[2016-12-14 03:34] LABS: BASO % 0.6 % (0.0-1.0); EOS % 0.8 % (1.0-4.0); HEMOGLOBIN 10.5 g/dl (12.0-16.0); LYMPH # 1.5 10*3/uL (1.3-4.4); LYMPH % 29.2 % (27.0-41.0); MEAN CELL VOLUME 95.8 fl (81.0-99.0); MEAN CORPUSCULAR HGB 29.6 pg (27.0-31.0); MEAN CORPUSCULAR HGB CONC 30.9 g/dl (33.0-37.0); MEAN PLATELET VOLUME 10.6 fl (9.6-12.3); MONO # 0.6 10*3/uL (0.1-1.0); MONO % 11.7 % (3.0-9.0); NEUT # 2.9 10*3/uL (2.3-7.9); NEUT % 57.3 % (47.0-73.0); PLATELET COUNT AUTOMATED 139 10*3/uL (130-400); RED BLOOD COUNT 3.55 10*6/uL (4.10-5.10); RED CELL DISTRI WIDTH 19.9 % (0-14.5)
[2016-12-14 03:50] LABS: ALBUMIN 3.1 gm/dl (3.1-4.5); BILIRUBIN, TOTAL 1.1 mg/dl (0.2-1.0)
[2016-12-14 04:27] LABS: BILIRUBIN NEGATIVE (NEGATIVE); BLOOD NEGATIVE (NEGATIVE); CLARITY CLEAR (CLEAR); COLOR YELLOW (YELLOW); GLUCOSE NEGATIVE (NEGATIVE); KETONE NEGATIVE (NEGATIVE); LEUKO ESTERASE NEGATIVE (NEGATIVE); NITRITE NEGATIVE (NEGATIVE); PH 6.5 (5.0-9.0); PROTEIN NEGATIVE (NEGATIVE); SPECIFIC GRAVITY <= 1.005 (1.005-1.030)
[2016-12-14 04:35] LABS: BACTERIA TRACE; EPITHELIAL CELLS 0-2; RBC 0-2 rbc/hpf (0-2); URINE REFLEX COMMENT NO (NO); WBC 0-2 wbc/hpf (0-5)
== END 2016-12-14 07:14 | disposition other institution (70) ==
LOC: ED 03:05
PROVIDERS: Emergency Medicine
DX: R41.0 Disorientation, unspecified (principal); I48.91 Unspecified atrial fibrillation; F41.9 Anxiety disorder, unspecified; K21.9 Gastro-esophageal reflux disease without esophagitis; E03.9 Hypothyroidism, unspecified; I12.9 Hypertensive chronic kidney disease with stage 1 through stage 4 chronic kidney disease, or unspecified chronic kidney disease; N18.3 Chronic kidney disease, stage 3 (moderate); E78.00 Pure hypercholesterolemia, unspecified; J44.9 Chronic obstructive pulmonary disease, unspecified; I50.9 Heart failure, unspecified; Z88.0 Allergy status to penicillin; Z86.73 Personal history of transient ischemic attack (TIA), and cerebral infarction without residual deficits; Z88.1 Allergy status to other antibiotic agents; Z88.2 Allergy status to sulfonamides; Z79.899 Other long term (current) drug therapy

== ENCOUNTER 2017-03-11 22:50 | Emergency (ER) | payer OTHER ==
[~2017-03-11] VITALS: Ht 162.5 cm; Wt 62.1 kg
[~2017-03-11 22:50] MED LIST changes: +ADVAIR DISKUS 11 DSK INH; +ALDACTONE25 MG PO; +ALPRAZOLAM0.25 M2 PO; +ARMOUR THYROID30 M1 PO; +ASPIR LOW81 MG PO; +CARVEDILOL6.25 MG PO; +FLOVENT DI50 MCG/Act IH; +MASON NATURAL1000 IU PO; +OMEPRAZOLE20 M2 PO; +POTASSIUM CHLO20 ME4 PO; +WARFARIN SOD5 MG PO; +ZOLPIDEM10 MG PO; +ZYLOPRIM300 MG PO
[2017-03-11 22:56] VITALS: BP 155/74
[2017-03-11 23:33] LABS: INTERNATIONAL NORM RATIO 2.8 (2.0-3.5)
[2017-03-12] MEDS ORDERED: CLINDAMYCIN HC300 MG PO (00:05)
== END 2017-03-12 00:18 | disposition home or self-care (01) ==
LOC: ED 22:50
PROVIDERS: Physician Assistant
DX: R04.0 Epistaxis (principal); Z88.0 Allergy status to penicillin; Z88.2 Allergy status to sulfonamides; Z88.1 Allergy status to other antibiotic agents; Z79.02 Long term (current) use of antithrombotics/antiplatelets; Z79.899 Other long term (current) drug therapy; Z79.82 Long term (current) use of aspirin